=== PATIENT | female | born 1995 | race Two or more races ===

== ENCOUNTER 2020-11-12 12:57 | Outpatient (REF) | payer OTHER, SELFPAY ==
[2020-11-13 02:51] LABS: CT PCR NOT DETECTED (Not Detect.); NG PCR NOT DETECTED (Not Detect.)
[2020-11-13 10:38] LABS: BV Int Neg Control Negative (Negative)
[2020-11-13 10:39] LABS: BV Int Pos Control Positive (Positive)
== END 2020-11-12 12:58 | disposition home or self-care (01) ==
LOC: HO.LAB 12:57
PROVIDERS: PCP Internal Medicine; Visit Provider Advanced Practice Midwife
DX: Z01.419 Encounter for gynecological examination (general) (routine) without abnormal findings (principal); Z20.2 Contact with and (suspected) exposure to infections with a predominantly sexual mode of transmission
CPT/HCPCS: 87480; 87491; 87510; 87591; 87660; 88142